=== PATIENT | male | born 1990 | race Caucasian/White ===

== ENCOUNTER 2020-01-25 20:18 | Emergency (ER) | payer MEDICAID ==
[~2020-01-25] VITALS: Ht 177.8 cm; Wt 75.0 kg
[2020-01-25 20:19] VITALS: BP 134/92
[2020-01-25] MEDS ORDERED: LIDOcaine 5% patch TP STA (22:18)
[2020-01-25] MEDS ORDERED: orphenadrine citrate 60mg/2ml inj. IM ONE (22:20)
[2020-01-25] MEDS ORDERED: ketorolac tromethamine 15mg/ml inj. IM ONE (22:20)
[2020-01-25] MEDS ORDERED: LIDO700A32 TOP (22:39)
== END 2020-01-25 23:05 | disposition home or self-care (01) ==
LOC: ER 20:19 → MERGE 20:19 → ER 23:05
DX: M54.12 Radiculopathy, cervical region (principal); Z88.1 Allergy status to other antibiotic agents
CPT/HCPCS: 96372; 99283; J1885

== ENCOUNTER 2020-01-27 15:45 | Emergency (ER) | payer MEDICAID ==
[~2020-01-27] VITALS: Ht 177.8 cm; Wt 75.0 kg
[~2020-01-27 15:45] MED LIST: LIDO700A32 TOP
[2020-01-27] MEDS ORDERED: normal saline 1000ML IV soln IVB ONE (16:05)
[2020-01-27 16:28] LABS: ALANINE AMINOTRANSFERASE 34 U/L (12-78); ALBUMIN 4.9 G/DL (3.4-5.0); ALBUMIN/GLOBULIN RATIO 1.5 (1.1-1.5); ALKALINE PHOSPHATASE 74 IU/L (46-116); ANION GAP 9 (8-16); ASPARTATE AMINO TRANSFERASE 22 U/L (10-37); BILIRUBIN,TOTAL 2.8 MG/DL (0.1-1.0); BLOOD UREA NITROGEN 17 MG/DL (7-18); BUN/CREATININE RATIO 17.5 (5.4-32.0); CALCIUM 9.5 MG/DL (8.5-10.1); CHLORIDE 103 MMOL/L (99-107); CREATININE 0.97 MG/DL (0.60-1.10); GLUCOSE 90 MG/DL (70-104); POTASSIUM 3.2 MMOL/L (3.5-5.1); SODIUM 139 MMOL/L (135-145); TOTAL CARBON DIOXIDE 26.9 MMOL/L (24-32); TOTAL PROTEIN 8.1 G/DL (6.4-8.2); eGFR > 90 ML/MIN
[2020-01-27 16:33] LABS: BASOPHILS % (AUTO) 0.3 % (0-1); EOSINOPHILS % (AUTO) 0.5 % (0-6); HEMATOCRIT 44.1 % (42.0-52.0); HEMOGLOBIN 15.1 g/dl (14.0-17.9); LYMPHOCYTES # (AUTO) 2.7 X10'3 (1.1-4.8); LYMPHOCYTES % (AUTO) 31.1 % (21-51); MEAN CORPUSCULAR HGB CONC 34.3 g/dL (33.0-36.5); MEAN CORPUSCULAR VOLUME 90.6 FL (78-98); MONOCYTES # (AUTO) 0.8 X10'3 (0-0.9); MONOCYTES % (AUTO) 8.8 % (2-12); NEUTROPHILS # (AUTO) 5.2 X10'3 (1.8-7.7); NEUTROPHILS % (AUTO) 59.3 % (42-75); PLATELET COUNT 242 X10'3 (140-440); RED BLOOD COUNT 4.87 X10'6 (4.70-6.10); WHITE BLOOD COUNT 8.8 X10'3 (4.5-11.0)
[2020-01-27 17:54] LABS: URINE AMPHETAMINE SCREEN NEGATIVE (Neg); URINE BARBITUATE SCREEN NEGATIVE (Neg); URINE BENZODIAZEPINES SCREEN NEGATIVE (Neg); URINE CANNABINOID SCREEN POSITIVE (Neg); URINE COCAINE SCREEN NEGATIVE (Neg); URINE METHADONE SCREEN NEGATIVE (Neg); URINE OPIATE SCREEN NEGATIVE (Neg); URINE PHENCYCLIDINE SCREEN NEGATIVE (Neg)
[2020-01-27 18:13] VITALS: BP 146/95
== END 2020-01-27 18:15 | disposition home or self-care (01) ==
LOC: ER 15:46 → MERGE 15:46 → ER 18:15
DX: R00.2 Palpitations (principal); F41.9 Anxiety disorder, unspecified; Z88.1 Allergy status to other antibiotic agents; Z79.899 Other long term (current) drug therapy
CPT/HCPCS: 36415; 80053; 80305; 83735; 84443; 84484; 85025; 93005; 96360; 99284; J7030

== ENCOUNTER 2020-02-15 21:10 | Emergency (ER) | payer MEDICAID ==
[~2020-02-15] VITALS: Ht 177.8 cm; Wt 76.1 kg
[2020-02-15 23:01] LABS: BASOPHILS # (AUTO) 0.1 X10'3 (0-0.2); BASOPHILS % (AUTO) 0.8 % (0-1); EOSINOPHILS % (AUTO) 0.6 % (0-6); HEMOGLOBIN 14.7 g/dl (14.0-17.9); LYMPHOCYTES # (AUTO) 1.7 X10'3 (1.1-4.8); MEAN CORPUSCULAR HEMOGLOBIN 31.4 PG (27.0-31.0); MEAN CORPUSCULAR HGB CONC 34.3 g/dL (33.0-36.5); MEAN CORPUSCULAR VOLUME 91.6 FL (78-98); MEAN PLATELET VOLUME 10.3 FL (7.4-10.4); MONOCYTES # (AUTO) 0.7 X10'3 (0-0.9); MONOCYTES % (AUTO) 10.5 % (2-12); NEUTROPHILS # (AUTO) 4.3 X10'3 (1.8-7.7); NEUTROPHILS % (AUTO) 63.1 % (42-75); PLATELET COUNT 238 X10'3 (140-440); RED BLOOD COUNT 4.69 X10'6 (4.70-6.10); RED CELL DISTRIBUTION WIDTH 13.4 % (11.5-14.5); WHITE BLOOD COUNT 6.8 X10'3 (4.5-11.0)
[2020-02-15 23:15] LABS: ALANINE AMINOTRANSFERASE 42 U/L (12-78); ALBUMIN 4.3 G/DL (3.4-5.0); ALBUMIN/GLOBULIN RATIO 1.3 (1.1-1.5); ALKALINE PHOSPHATASE 68 IU/L (46-116); ANION GAP 7 (8-16); ASPARTATE AMINO TRANSFERASE 34 U/L (10-37); BLOOD UREA NITROGEN 5 MG/DL (7-18); BUN/CREATININE RATIO 5.1 (5.4-32.0); CALCIUM 10.1 MG/DL (8.5-10.1); CHLORIDE 102 MMOL/L (99-107); CREATININE 0.98 MG/DL (0.60-1.10); GLUCOSE 146 MG/DL (70-104); POTASSIUM 3.5 MMOL/L (3.5-5.1); SODIUM 140 MMOL/L (135-145); TOTAL CARBON DIOXIDE 31.3 MMOL/L (24-32); TOTAL PROTEIN 7.5 G/DL (6.4-8.2); eGFR 90 ML/MIN
[2020-02-15 23:58] VITALS: BP 126/82
== END 2020-02-15 23:55 | disposition home or self-care (01) ==
LOC: ER 21:11
DX: R04.0 Epistaxis (principal); R53.1 Weakness; Z88.1 Allergy status to other antibiotic agents; Z79.899 Other long term (current) drug therapy
CPT/HCPCS: 36415; 80053; 85025; 99283

== ENCOUNTER 2020-07-26 22:11 | Emergency (ER) | payer MEDICAID ==
[2020-07-27] MEDS ORDERED: AMOX-422 PO (10:18)
== END 2020-07-26 22:45 | disposition left against medical advice (07) ==
LOC: ER 22:12
DX: R51.9 Headache, unspecified (principal); Z53.21 Procedure and treatment not carried out due to patient leaving prior to being seen by health care provider

== ENCOUNTER 2020-07-27 08:45 | Emergency (ER) | payer MEDICAID ==
[~2020-07-27] VITALS: Ht 177.8 cm; Wt 68.2 kg
--- NOTE | 2020-07-27 09:05 | NUR ---
PATIENT REPORTS WEAKNESS, GENERAL ACHES X 3 DAYS. REPORTS PAIN AND DIFFICULTY URINATING, STOOL ABNORMAL BUT "EYES COULD BE OFF". DENIES ANY NAUSEA/VOMITING. PATIENT GCS 15, LUNGS CLEAR, NO SIGNS OF DISTRESS
[2020-07-27 09:24] LABS: CLARITY,URINE CLEAR (Clear); COLOR,URINE YELLOW (Yellow); GLUCOSE, URINE NEGATIVE (Neg); KETONES,URINE NEGATIVE (Neg); LEUKOCYTE ESTERASE ,URINE NEGATIVE (Neg); NITRITES, URINE NEGATIVE (Neg); OCCULT BLOOD,URINE NEGATIVE (Neg); PROTEIN,URINE NEGATIVE (Neg)
[2020-07-27 09:29] LABS: UA COLLECTION TYPE NON-SPECIFIED
[2020-07-27 09:51] LABS: BASOPHILS % (AUTO) 0.6 % (0-1); EOSINOPHILS # (AUTO) 0.1 X10'3 (0-0.9); EOSINOPHILS % (AUTO) 1.5 % (0-6); HEMATOCRIT 42.5 % (42.0-52.0); HEMOGLOBIN 14.4 g/dl (14.0-17.9); LYMPHOCYTES # (AUTO) 1.4 X10'3 (1.1-4.8); LYMPHOCYTES % (AUTO) 23.8 % (21-51); MEAN CORPUSCULAR HEMOGLOBIN 30.6 PG (27.0-31.0); MEAN CORPUSCULAR HGB CONC 33.9 g/dL (33.0-36.5); MEAN CORPUSCULAR VOLUME 90.2 FL (78-98); MEAN PLATELET VOLUME 10.5 FL (7.4-10.4); MONOCYTES # (AUTO) 0.5 X10'3 (0-0.9); MONOCYTES % (AUTO) 9.2 % (2-12); NEUTROPHILS # (AUTO) 3.8 X10'3 (1.8-7.7); NEUTROPHILS % (AUTO) 64.9 % (42-75); PLATELET COUNT 205 X10'3 (140-440); RED BLOOD COUNT 4.72 X10'6 (4.70-6.10); RED CELL DISTRIBUTION WIDTH 13.4 % (11.5-14.5); WHITE BLOOD COUNT 5.8 X10'3 (4.5-11.0)
[2020-07-27 10:05] VITALS: BP 132/79
[2020-07-27 10:07] LABS: ALANINE AMINOTRANSFERASE 45 U/L (12-78); ALBUMIN 4.3 G/DL (3.4-5.0); ALBUMIN/GLOBULIN RATIO 1.4 (1.1-1.5); ALKALINE PHOSPHATASE 81 IU/L (46-116); ANION GAP 8 (8-16); ASPARTATE AMINO TRANSFERASE 22 U/L (10-37); BILIRUBIN,TOTAL 1.3 MG/DL (0.1-1.0); BLOOD UREA NITROGEN 11 MG/DL (7-18); BUN/CREATININE RATIO 12.2 (5.4-32.0); CALCIUM 9.6 MG/DL (8.5-10.1); CHLORIDE 105 MMOL/L (99-107); GLUCOSE 139 MG/DL (70-104); LIPASE 74 U/L (73-393); POTASSIUM 4.1 MMOL/L (3.5-5.1); SODIUM 141 MMOL/L (135-145); TOTAL CARBON DIOXIDE 27.8 MMOL/L (24-32); TOTAL PROTEIN 7.3 G/DL (6.4-8.2); eGFR > 90 ML/MIN
[2020-07-27] MEDS ORDERED: AMOX-422 PO (10:18)
== END 2020-07-27 10:25 | disposition home or self-care (01) ==
LOC: ER 08:46
DX: J01.90 Acute sinusitis, unspecified (principal); J02.9 Acute pharyngitis, unspecified; R42 Dizziness and giddiness; R11.0 Nausea; R30.9 Painful micturition, unspecified; R51.9 Headache, unspecified; Z90.49 Acquired absence of other specified parts of digestive tract; Z88.1 Allergy status to other antibiotic agents; Z79.2 Long term (current) use of antibiotics; Z79.899 Other long term (current) drug therapy
CPT/HCPCS: 36415; 80053; 81003; 83690; 85025; 99283

== ENCOUNTER 2021-03-02 20:47 | Emergency (ER) | payer MEDICAID ==
[~2021-03-02] VITALS: Ht 177.8 cm; Wt 160.0 kg
[2021-03-02] MEDS ORDERED: famotidine 20mg tablet PO ONE (22:40)
[2021-03-02] MEDS ORDERED: predniSONE 20 mg tablet PO ONE (22:40)
[2021-03-02] MEDS ORDERED: diphenhydrAMINE 25mg capsule PO ONE (22:40)
[2021-03-02] MEDS ORDERED: PRED20TA PO (22:42)
[2021-03-02] MEDS ORDERED: DIPH25CA83 PO (22:42)
[2021-03-02 22:59] VITALS: BP 135/77
== END 2021-03-02 23:01 | disposition home or self-care (01) ==
LOC: ER 20:48
DX: L50.9 Urticaria, unspecified (principal); Z90.49 Acquired absence of other specified parts of digestive tract; Z88.1 Allergy status to other antibiotic agents; Z79.899 Other long term (current) drug therapy
CPT/HCPCS: 99284; J7512; Q0163

== ENCOUNTER 2021-04-20 12:40 | Emergency (ER) | payer MEDICAID ==
[~2021-04-20] VITALS: Ht 177.8 cm; Wt 70.5 kg
[~2021-04-20 12:40] MED LIST changes: +DIPH25CA83 PO
--- NOTE | 2021-04-20 13:00 | NUR ---
airway patent,denies , sating 100% ra. we will monitor.
[2021-04-20] MEDS ORDERED: bacitracin 15gm ointment TP ONE (14:35)
[2021-04-20] MEDS ORDERED: acetaminophen 325mg tablet PO ONE (14:45)
[2021-04-20] MEDS ORDERED: ibuprofen tablet 400 MG TABLET PO ONE (14:45)
[2021-04-20 15:20] VITALS: BP 120/74
== END 2021-04-20 15:18 | disposition home or self-care (01) ==
LOC: ER 12:40
DX: T22.10XA Burn of first degree of shoulder and upper limb, except wrist and hand, unspecified site, initial encounter (principal); Z90.49 Acquired absence of other specified parts of digestive tract; Z88.1 Allergy status to other antibiotic agents; Z79.899 Other long term (current) drug therapy; X08.8XXA Exposure to other specified smoke, fire and flames, initial encounter; Y93.89 Activity, other specified; Y92.89 Other specified places as the place of occurrence of the external cause; Y99.8 Other external cause status
CPT/HCPCS: 16020; 99284